=== PATIENT | male | born 1965 | race Caucasian/White ===

== ENCOUNTER 2018-12-07 20:30 | Emergency (ER) | payer BC ==
--- NOTE | 2018-12-07 21:18 | ED ---
GI/ HPI - HPI Summary HPI Summary: This patient is a 53 year old M [place] [facility] [place] by with a chief complaint of trouble initiating stream since about one month ago. He came into the ED as his brother from [place] told him to. He last urinated 10 minutes ago, and he reports he has noticed increased frequency in urination, and occasionally pain or burning during urination. Patient denies fever, and chills. - History of Current Complaint Chief Complaint: EDUrogenitalProblems Time Seen by Provider: 12/07/18 21:03 Stated Complaint: PROSTATE ISSUES/HEAD CONGESTION PER PT Hx Obtained From: Patient Onset/Duration: Started Weeks Ago, Still Present Timing: Constant Severity: Mild Current Severity: Mild Pain Intensity: 3 Pain Characteristics: Other: - burning Associated Signs and Symptoms: Positive: Dysuria, Other: - Increased frequency of urination. Negative: Fever Aggravating Factor(s): Voiding, Urination Alleviating Factor(s): Nothing - Allergy/Home Medications Allergies/Adverse Reactions: Allergies Allergy/AdvReac Type Severity Reaction Status Date / Time No Known Allergies Allergy Verified 12/07/18 20:40 Home Medications: Home Medications NK [No Home Medications Reported] 12/07/18 [History Confirmed 12/07/18] PMH/Surg Hx/FS Hx/Imm Hx Sensory History: Denies: Hx Legally Blind, Hx Deafness EENT History: Denies: Hx Deafness - Surgical History Surgical History: None Infectious Disease History: No Infectious Disease History: Denies: Traveled Outside the [place] in Last 30 Days - Family History Known Family History: Negative: Hypertension, Diabetes - Social History Lives: With Family Alcohol Use: Rare Substance Use Type: Reports: None Smoking Status (MU): Unknown if Ever Smoked Review of Systems Negative: Fever, Chills Positive: burning, dysuria, frequency, other - trouble initiating stream All Other Systems Reviewed And Are Negative: Yes Physical Exam - Summary Physical Exam Summary: Appearance: Well-appearing, Well-nourished, lying in bed comfortably Skin: Warm, dry, no obvious rash Eyes: sclera anicteric, no conjunctival pallor ENT: mucous membranes moist, pharynx appears normal Neck: Supple, nontender Respiratory: Clear to auscultation, no signs of respiratory distress Cardiovascular: Normal S1, S2. No murmurs. Normal distal pulses in tibial and radial bilaterally. Abdomen: Soft, nontender, normal active bowel sounds present Musculoskeletal: Normal, Strength/ROM Intact GIGU: Bedside US reveals post urination residual of over 1 liter in fluid Neurological: A&Ox3, awake and alert, mentation is normal, speech is fluent and appropriate Psychiatric: affect is normal, does not appear anxious or depressed Triage Information Reviewed: Yes Vital Signs On Initial Exam: Initial Vitals Temp Pulse Resp BP Pulse Ox 99 F 120 18 176/112 98 12/07/18 20:35 12/07/18 20:35 12/07/18 20:35 12/07/18 20:35 12/07/18 20:35 Vital Signs Reviewed: Yes Procedures - Sedation Patient Received Moderate/Deep Sedation with Procedure: No Diagnostics - Vital Signs Vital Signs Temp Pulse Resp BP Pulse Ox 12/07/18 20:35 99 F 120 18 176/112 98 - Laboratory Result Diagrams: 12/07/18 21:23 12/07/18 21:23 Lab Statement: Any lab studies that have been ordered have been reviewed, and results considered in the medical decision making process. - EKG 2209 Cardiac Rate: Tachycardia EKG Rhythm: Sinus Tachycardia Summary of EKG Findings: EKG at 22:09 reveals sinus tachycardia at 100 BPM, somewhat prominent but not peaked T-waves, no ischemic changes. ED Physician has reviewed and interpreted this EKG. Re-Evaluation - Re-Evaluation First Eval Re-Evaluation Time: 22:15 Comment: Discussed results with pt. Second Eval Re-Evaluation Time: 22:44 Comment: Discussed plan to transfer with pt. GIGU Course/Dx - Course Course Of Treatment: This patient is a 53 year old M presenting to [facility] accompanied by with a chief complaint of trouble initiating stream since about one month ago. He came into the ED as his brother from [place] told him to. He last urinated 10 minutes ago, and he reports he has noticed increased frequency in urination, and occasionally pain or burning during urination. Patient denies fever, and chills. Bedside US reveals post urination residual of over 1 liter in fluid. Blood work obtained. WBS is 15.1, RBC is 2.51, Hgb is 7.3, Hct is 23, Plt Count is 474, MPV is 6.9, Sodium is 129, Potassium is 5.9 , Carbon Dioxide is 8, Anion Gap is 19, Creatinine is 19.01, Glucose is 133, AST is 11, and Albumin/Globulin Ratio is 0.9. UA obtained. Urine Protein is 2+, Urine blood is 2+, Ur Leukocyte Esterase is 3+, Urine WBC is 3+, Urine Glucose is 1+. EKG at 22:09 reveals sinus tachycardia at 100 BPM, somewhat prominent but not peaked T-waves, no ischemic changes. ED Physician has reviewed and interpreted this EKG. His hyperkalemia does not require treatment at this point. We discussed patient care with Dr. Baker and they recommended pt have emergency dialysis. Dr. Knox from [facility] accepts pt for admission. Patient will be transferred to [facility]. The patient is agreeable with this plan. - Diagnoses Provider Diagnoses: Acute renal failure, Hyperkalemia - Physician Notifications Discussed Care Of Patient With: Judit Baker Time Discussed With Above Provider: 20:14 Instructed by Provider To: Other - We discussed patient care with Dr. Baker and they recommended pt have emergency dialysis. 22:43 - Dr. Knox from [facility] accepts pt for admission Admit/Transition Orders Completed By ED Provider: Yes Reason For Transfer: Specialty or service not available at [facility] [place] - Critical Care Time Critical Care Time: 30-74 min - 30 mins Discharge ED - Sign-Out/Discharge Documenting (check all that apply): Patient Departure - Transfer - Discharge Plan Condition: Good Disposition: TRANS HIGHER LVL OF CARE FAC Referrals: Anival Camilo MD [Medical Doctor] - As Soon As Possible Additional Instructions: You have gradually developed some fairly severe urinary obstruction. There was over a liter of urine in the bladder remaining, even right after you voided. This needs further evaluation by a urologist. In the meantime I am starting you on flomax which should start to help in the interim. - Billing Disposition and Condition Condition: GOOD Disposition: Trans Higher Lvl of Care Fac - Attestation Statements Document Initiated by Scribe: Yes Documenting Scribe: Hodan Frazier Provider For Whom Scribe is Documenting (Include Credential): Moe Garcia MD Scribe Attestation: Hodan Ott, scribed for Moe Garcia MD on 12/07/18 at 2312. Scribe Documentation Reviewed: Yes Provider Attestation: The documentation as recorded by the scribeHodan accurately reflects the service I personally performed and the decisions made by me, Moe Garcia MD Status of Owen Document: Viewed
[2018-12-07 21:21] LABS: Urine Appearance Turbid; Urine Bacteria Absent (Absent); Urine Bilirubin Negative (Negative); Urine Blood 2+ (Negative); Urine Color Yellow; Urine Glucose 1+(50 mg/dL) (Negative); Urine Ketones Negative (Negative); Urine Nitrite Negative (Negative); Urine Protein 2+(100 mg/dL) (Negative); Urine Red Blood Cell Trace(0-2/hpf) (Absent); Urine Urobilinogen Negative (Negative); Urine White Blood Cell 3+(>20/hpf) (Absent)
[2018-12-07 21:30] LABS: Hematocrit 23 % (42-52); Hemoglobin 7.3 g/dL (14.0-18.0); Mean Corpuscular HGB Conc 33 g/dL (31-36); Mean Corpuscular Hemoglobin 29 pg (27-31); Mean Corpuscular Volume 89 fL (80-94); Mean Platelet Volume 6.9 fL (7.4-10.4); Platelet Count 474 10^3/uL (150-450); Red Blood Count 2.51 10^6 /uL (4.18-5.48); Red Cell Distribution Width 14 % (10-15); White Blood Count 15.1 10^3/uL (3.5-10.8)
[2018-12-07 21:46] LABS: Albumin 3.5 g/dL (3.2-5.2); Albumin/Globulin Ratio 0.9 (1-3); Calcium 9.2 mg/dL (8.6-10.3); EGFR African American 3.2 (>60); EGFR Non-African American 2.6 (>60); Globulin 3.9 g/dL (2-4); Total Bilirubin 0.3 mg/dL (0.2-1.0); Total Protein 7.4 g/dL (6.4-8.9)
[2018-12-07 21:54] LABS: Potassium 5.9 mmol/L (3.5-5.0)
[2018-12-07 22:01] LABS: ABS Basophils 0.1 10^3/ul (0-0.2); ABS Lymphocytes 0.5 10^3/ul (1.0-4.8); ABS Monocytes 1.9 10^3/ul (0-0.8); ABS Neutrophils 12.6 10^3/ul (1.5-7.7); Eosinophil % 0.3 %; Lymphocyte % 3.3 %
[2018-12-07 22:27] LABS: BUN/Creatinine Ratio 9.2 (8-20)
[2018-12-07 23:35] VITALS: BP 153/90
== END 2018-12-07 23:47 | disposition short-term general hospital (02) ==
LOC: ED 20:30
DX: N17.9 Acute kidney failure, unspecified (principal); E87.5 Hyperkalemia; R00.0 Tachycardia, unspecified
CPT/HCPCS: 36415; 80053; 81003; 81015; 85025; 87086; 93005; 99283